=== PATIENT | female | born 1985 | race African-American/Black ===

== ENCOUNTER 2020-08-19 11:53 | Observation (INO) ==
[2020-08-19 14:22] LABS: Basophils % 0.5 % (0.0-0.8); Eosinophils # 0.3 10*3/uL (0.0-0.87); Eosinophils % 3.1 % (0.00-10.9); Hematocrit 19.7 VOL% (35.7-47.0); Immature Granulocytes % 0.6 %; Immature Granulocytes Absolute 0.05 #; Lymphocytes % 23.7 % (21.3-54.2); Mean Corpuscular HGB Conc 31.5 GM/DL (32-36); Mean Corpuscular Volume 91.2 FL (87-102); Mean Platelet Volume 10.2 FL (9.6-12.0); Monocytes % 7.3 % (1.7-12.7); Neutrophils % 64.8 % (38.7-73.9); Platelet Count 201 T/CUMM (130-400); Red Blood Count 2.16 MC/CUMM (3.8-5.5); Red Cell Distribution Width 17.3 % (9.3-17.3); White Blood Count 8.4 T/CUMM (4-12)
[2020-08-19 14:28] LABS: Hemoglobin 6.2 GM/DL (12.0-16.0)
[2020-08-19 14:33] LABS: Barbiturates Screen,Urine Negative (Negative); Benzodiazepines Screen,Urine Negative (Negative); Cannabinoid Screen,Urine Positive (Negative); Opiate Screen,Urine Negative (Negative); Phencyclidine Screen,Urine Negative (Negative)
[2020-08-19 14:53] LABS: Alanine Aminotransferase < 6 U/L (13-56); Albumin 3.2 G/DL (3.4-5.0); Alkaline Phosphatase 866 U/L (45-117); Aspartate Amino Transferase 11 U/L (0-37); Blood Urea Nitrogen 43 MG/DL (7-18); Calcium 8.8 MG/DL (8.5-10.1); Estimated Glom Filtration Rate 5 ML/MIN; Glucose 76 MG/DL (74-106); Osmolality,Calculated 282.8 MOS/KG (273-304); Total Protein 7.6 G/DL (6.4-8.3)
[2020-08-19 16:05] LABS: Bilirubin,Urine Negative (Negative); Blood, Urine Negative (Negative); Glucose,Urine (UA) 50 mg/dL (Negative); Ketones,Urine Negative (Negative); Nitrite,Urine Negative (Negative); Protein,Urine 100 MG/DL; RBC,Urine 7 /HPF (0-4); Squamous Epithelial Cell,Urine Many /HPF (0-10); Urine Appearance CLOUDY (Clear); Urine Color Yellow (Yellow); Urine Urobilinogen < 2.0 EU/DL (0.2-1.0); WBC,Urine 4 /HPF (0-6)
[2020-08-19] MEDS ORDERED: cloNIDine 0.1 MG TABLET ONE (17:07)
[2020-08-19] MEDS ORDERED: cloNIDine 0.1 MG TABLET PO STA (17:07)
[2020-08-19] MEDS ORDERED: GLUCAGON 1 MG VIAL IM PRN (17:36)
[2020-08-19] MEDS ORDERED: ZALEPLON 5 MG CAPSULE PO PRN (17:36)
[2020-08-19] MEDS ORDERED: ACETAMINOPHEN 325 MG TABLET PO PRN (17:36)
[2020-08-19] MEDS ORDERED: guaiFENesin/DM ER 600-30 MG TABLET PO PRN (17:36)
[2020-08-19] MEDS ORDERED: ALBUTEROL 2.5 MG/3 ML NEB RESP TX PRN (17:36)
[2020-08-19] MEDS ORDERED: NICOTINE 21 MG/24 HR PATCH TRANSDERM PRN (17:36)
[2020-08-19] MEDS ORDERED: ALUMINUM/MAGNES/SIMETH MAX STR 30 ML UDCUP PO PRN (17:36)
[2020-08-19] MEDS ORDERED: BISACODYL 5 MG TABLET PO PRN (17:36)
[2020-08-19] MEDS ORDERED: DEXTROSE 50% 25 GM/50 ML VIAL IV PRN (17:36)
[2020-08-19] MEDS ORDERED: diphenhydrAMINE CAP 25 MG CAPSULE PO PRN (17:36)
[2020-08-19] MEDS ORDERED: busPIRone 15 MG TABLET PO PRN (17:41)
[2020-08-19] MEDS ORDERED: SODIUM CHLORIDE 0.9% 1,000 ML IV PRN (17:45)
[2020-08-19] MEDS: tiZANidine 4 MG TABLET PO SCH (20:45)
[2020-08-19] MEDS: DULoxetine 30 MG CAPSULE PO SCH (20:45)
[2020-08-19] MEDS ORDERED: amLODIPine 10 MG TABLET PO ONE (22:40)
[2020-08-19] MEDS ORDERED: carvediloL 25 MG TABLET PO ONE (22:40)
[2020-08-20] MEDS: DOXAZOSIN 4 MG TABLET PO SCH ×2 (07:14→09:49)
[2020-08-20] MEDS: carvediloL 25 MG TABLET PO SCH ×2 (07:14→17:03)
[2020-08-20] MEDS: amLODIPine 10 MG TABLET PO SCH ×2 (07:14→09:50)
[2020-08-20] MEDS: tiZANidine 4 MG TABLET PO SCH ×3 (07:14→20:11)
[2020-08-20] MEDS: PROMETHAZINE 25 MG TABLET PO PRN ×2 (07:19→20:10)
[2020-08-20] MEDS ORDERED: EPOETIN ALFA-EPBX 10,000 UNIT/ML VIAL IV PRN (12:30)
[2020-08-20 12:31] LABS: Basophils # 0.1 10*3/uL (0.0-0.2); Basophils % 0.7 % (0.0-0.8); Eosinophils # 0.2 10*3/uL (0.0-0.87); Eosinophils % 2.4 % (0.00-10.9); Hematocrit 22.8 VOL% (35.7-47.0); Hemoglobin 7.2 GM/DL (12.0-16.0); Immature Granulocytes % 0.6 %; Immature Granulocytes Absolute 0.04 #; Lymphocytes # 1.6 10*3/uL (1.4-4.0); Lymphocytes % 21.9 % (21.3-54.2); Mean Corpuscular HGB Conc 31.6 GM/DL (32-36); Mean Corpuscular Volume 90.1 FL (87-102); Mean Platelet Volume 10.1 FL (9.6-12.0); Monocytes % 5.4 % (1.7-12.7); Platelet Count 197 T/CUMM (130-400); Red Blood Count 2.53 MC/CUMM (3.8-5.5); Red Cell Distribution Width 17.5 % (9.3-17.3); White Blood Count 7.2 T/CUMM (4-12)
[2020-08-20] MEDS ORDERED: HEPARIN 10,000 UNIT/10 ML VIAL IV SCH (12:45)
[2020-08-20 12:49] LABS: Calcium 8.4 MG/DL (8.5-10.1); Osmolality,Calculated 283.8 MOS/KG (273-304)
[2020-08-20] MEDS: ISOSORBIDE MONONITRATE 30 MG TABLET PO SCH (15:32)
[2020-08-20] MEDS: DULoxetine 30 MG CAPSULE PO SCH (20:10)
[2020-08-21 06:48] LABS: Basophils # 0.1 10*3/uL (0.0-0.2); Basophils % 0.6 % (0.0-0.8); Eosinophils # 0.2 10*3/uL (0.0-0.87); Eosinophils % 2.6 % (0.00-10.9); Hematocrit 24.3 VOL% (35.7-47.0); Hemoglobin 7.8 GM/DL (12.0-16.0); Immature Granulocytes % 0.7 %; Immature Granulocytes Absolute 0.06 #; Lymphocytes # 1.7 10*3/uL (1.4-4.0); Lymphocytes % 20.8 % (21.3-54.2); Mean Corpuscular HGB Conc 32.1 GM/DL (32-36); Mean Corpuscular Volume 88.4 FL (87-102); Mean Platelet Volume 10.1 FL (9.6-12.0); Neutrophils % 68.3 % (38.7-73.9); Platelet Count 210 T/CUMM (130-400); Red Blood Count 2.75 MC/CUMM (3.8-5.5); Red Cell Distribution Width 17.1 % (9.3-17.3); White Blood Count 8.1 T/CUMM (4-12)
[2020-08-21 07:13] LABS: Alanine Aminotransferase < 6 U/L (13-56); Alkaline Phosphatase 925 U/L (45-117); Aspartate Amino Transferase 9 U/L (0-37); Bilirubin,Total < 0.39 MG/DL (0.2-1.0); Blood Urea Nitrogen 32 MG/DL (7-18); Calcium 8.6 MG/DL (8.5-10.1); Estimated Glom Filtration Rate 8 ML/MIN; Glucose 93 MG/DL (74-106); Total Protein 7.5 G/DL (6.4-8.3)
[2020-08-21] MEDS: amLODIPine 10 MG TABLET PO SCH (08:39)
[2020-08-21] MEDS: carvediloL 25 MG TABLET PO SCH ×2 (08:39→17:40)
[2020-08-21] MEDS: tiZANidine 4 MG TABLET PO SCH ×2 (08:39→20:25)
[2020-08-21] MEDS: ISOSORBIDE MONONITRATE 30 MG TABLET PO SCH (08:39)
[2020-08-21] MEDS: DOXAZOSIN 4 MG TABLET PO SCH (08:39)
[2020-08-21] MEDS: HydrOXYzine PAMOATE 25 MG CAPSULE PO PRN (17:47)
[2020-08-21] MEDS: PROMETHAZINE 25 MG TABLET PO PRN (20:24)
[2020-08-21] MEDS: DULoxetine 30 MG CAPSULE PO SCH (20:24)
[2020-08-22] MEDS: tiZANidine 4 MG TABLET PO SCH ×2 (08:55→20:30)
[2020-08-22] MEDS: carvediloL 25 MG TABLET PO SCH ×2 (08:56→16:23)
[2020-08-22] MEDS: DOXAZOSIN 4 MG TABLET PO SCH (08:56)
[2020-08-22] MEDS: amLODIPine 10 MG TABLET PO SCH (08:56)
[2020-08-22] MEDS: ISOSORBIDE MONONITRATE 30 MG TABLET PO SCH (08:56)
[2020-08-22] MEDS: HydrOXYzine PAMOATE 25 MG CAPSULE PO PRN (08:59)
[2020-08-22] MEDS: PROMETHAZINE 25 MG TABLET PO PRN (16:26)
[2020-08-22] MEDS: DULoxetine 30 MG CAPSULE PO SCH (20:30)
[2020-08-23] MEDS: tiZANidine 4 MG TABLET PO SCH (08:55)
[2020-08-23] MEDS: DOXAZOSIN 4 MG TABLET PO SCH (08:55)
[2020-08-23] MEDS: amLODIPine 10 MG TABLET PO SCH (08:55)
[2020-08-23] MEDS: carvediloL 25 MG TABLET PO SCH (08:56)
[2020-08-23] MEDS: ISOSORBIDE MONONITRATE 30 MG TABLET PO SCH (08:56)
[2020-08-23 12:10] VITALS: BP 113/74
== END 2020-08-23 13:40 | disposition home or self-care (01) ==
LOC: N.EDINP 11:53 → N.ED 11:53 → SUATTDRO 17:36 → N.TELEN 18:38
PROVIDERS: ADMIT Internal Medicine; ATTEND Internal Medicine